=== PATIENT | female | born 1940 | race Hispanic/Latino ===

== ENCOUNTER 2018-11-23 12:22 | Outpatient (CLI) | payer MEDICARE, OTHER ==
--- NOTE | 2018-11-23 13:46 | XRay Report ---
Sternum, 2 views INDICATION: ANTERIOR SUBLUXATION OF LEFT STERNOCLAVICULAR JOINT. COMPARISON: None. IMPRESSION: No acute osseous or soft tissue abnormality. No significant DJD. No obvious abnormali ty is seen at the sternoclavicular joints. If further evaluation is needed CT or MRI would provide th e most information. Signer Name: Benigno Queen Jr, MD Signed: 11/23/2018 1:41 PM Workstation Name: [id number]
== END 2018-11-23 12:23 | disposition home or self-care (01) ==
LOC: SPVIMAG 12:22
PROVIDERS: ATTEND Student in an Organized Health Care Education/Training Program
DX: S43.212A Anterior subluxation of left sternoclavicular joint, initial encounter (principal); X58.XXXA Exposure to other specified factors, initial encounter; Y93.89 Activity, other specified; Y92.89 Other specified places as the place of occurrence of the external cause; Y99.8 Other external cause status
CPT/HCPCS: 71120